=== PATIENT | female | born 2000 | race American Indian/Alaskan Native ===

== ENCOUNTER 2021-07-17 10:56 | Emergency (ER) | payer SELFPAY ==
[2021-07-17] MEDS ORDERED: ACETAMINOPHEN 325 MG TAB PO ONE (11:54)
[2021-07-17] MEDS ORDERED: ONDANSETRON 4 MG ODT TAB PO ONE (11:54)
[2021-07-17] MEDS ORDERED: HYDROcodone/ACETAMINOPHEN 5-325 MG TAB PO ONE (11:54)
[2021-07-17 12:23] LABS: HCG Qualitative,Urine Negative (Negative)
[2021-07-17 12:28] LABS: Bilirubin,Urine NEG (Negative); Blood,Urine NEG (Negative); Color,Urine Yellow (Yellow); Mucus,Urine FEW /HPF; Urobilinogen,Urine < 2.0 mg/dL (<2.0)
--- NOTE | 2021-07-17 12:58 | XRay Report ---
XR spine lumbosacral 2-3V INDICATION / CLINICAL INFORMATION: low back pain after fall. COMPARISON: None available. FINDINGS: BONES/JOINT(S): No acute fracture or subluxation. No significant degenerative changes. SOFT TISSUES: No significant abnormality. ADDITIONAL FINDINGS: None. Signer Name: Franklyn Danielle MD Signed: 07/17/2021 12:53 PM Workstation Name: [id number]
--- NOTE | 2021-07-17 14:17 | Emergency Department Report ---
ED Back Pain/Injury HPI - General Chief Complaint: Back Pain/Injury Stated Complaint: FALL Time Seen by Provider: 07/17/21 11:48 Source: patient Limitations: No Limitations - History of Present Illness Initial Comments: Patient is a 21-year-old female who presents emergency room with complaints of a fall that occurred 2 days ago. Patient states that she was walking down this c oncrete steps and it was wet and she slipped and fell. She states she hit her lower back against the step. She states since then she has had lower back pain. She denies any other injury, loss of consciousness, vision changes, numbness, weakness, bowel or bladder continence. She is ambulatory. Patient states also for the last couple days she has had nausea vomiting, chills, body aches, cough. She states that she does not feel like she has been running a fever but she has a low-grade temperature in the ER. PMHx RA. No allergies to medications. - Related Data Previous Rx's Medication Instructions Recorded Last Taken Type Naproxen 375 mg PO BID PRN #20 tablet 07/17/21 Unknown Rx Ondansetron [Zofran Odt] 4 mg PO Q8HR PRN #12 tab.rapdis 07/17/21 Unknown Rx methOCARBAMOL [Robaxin TAB] 500 mg PO BID PRN #20 tab 07/17/21 Unknown Rx Allergies Allergy/AdvReac Type Severity Reaction Status Date / Time No Known Allergies Allergy Verified 07/17/21 11:33 ED Review of Systems ROS: Stated complaint: FALL Other details as noted in HPI Comment: All other systems reviewed and negative ED Past Medical Hx - Past Medical History Hx Asthma: Yes Additional medical history: RA - Medications Home Medications: Home Medications Medication Instructions Recorded Confirmed Last Taken Type Naproxen 375 mg PO BID PRN #20 tablet 07/17/21 Unknown Rx Ondansetron [Zofran Odt] 4 mg PO Q8HR PRN #12 tab.rapdis 07/17/21 Unknown Rx methOCARBAMOL [Robaxin TAB] 500 mg PO BID PRN #20 tab 07/17/21 Unknown Rx ED Physical Exam - General Limitations: No Limitations General appearance: alert, in no apparent distress - Head Head exam: Present: atraumatic, normocephalic - Eye Eye exam: Present: normal appearance - ENT ENT exam: Present: mucous membranes moist - Neck Neck exam: Present: normal inspection, full ROM. Absent: tenderness, meningismus - Respiratory Respiratory exam: Present: normal lung sounds bilaterally. Absent: respiratory distress, wheezes, rales, rhonchi, stridor, chest wall tenderness, accessory muscle use, decreased breath sounds, prolonged expiratory - Cardiovascular Cardiovascular Exam: Present: regular rate, normal rhythm, normal heart sounds. Absent: systolic murmur, diastolic murmur, rubs, gallop - Back Exam Back exam: Present: normal inspection, full ROM, paraspinal tenderness (bilateral lumbar), vertebral tenderness (mild midline lumbar, no step offs, no deformities ) - Neurological Exam Neurological exam: Present: alert, oriented X3, CN II-XII intact, normal gait. Absent: motor sensory deficit - Psychiatric Psychiatric exam: Present: normal affect, normal mood - Skin Skin exam: Present: warm, dry, intact ED Course Vital Signs 07/17/21 07/17/21 07/17/21 11:29 13:21 15:25 Temperature 100.4 F H Pulse Rate 100 H 82 Respiratory 16 18 15 Rate Blood Pressure 144/99 Blood Pressure 126/84 [Right] O2 Sat by Pulse 100 98 Oximetry ED Medical Decision Making - Lab Data Result diagrams: 07/17/21 13:44 07/17/21 13:44 Lab Results 07/17/21 07/17/21 07/17/21 Range/Units 13:44 13:44 Unknown WBC 3.4 L (4.5-11.0) K/mm3 RBC 4.97 (3.65-5.03) M/mm3 Hgb 13.6 (10.1-14.3) gm/dl Hct 41.3 (30.3-42.9) % MCV 83 (79-97) fl MCH 27 L (28-32) pg MCHC 33 (30-34) % RDW 14.0 (13.2-15.2) % Plt Count 182 (140-440) K/mm3 [place] % (Auto) Secondary History Teacher Add Manual Diff Complete Total Counted 100 Seg Neuts % (Manual) 63.0 (40.0-70.0) % Lymphocytes % (Manual) 14.0 (13.4-35.0) % Monocytes % (Manual) 22.0 H (0.0-7.3) % Basophils % (Manual) 1.0 (0.0-1.8) % Nucleated RBC % Not Reportable Seg Neutrophils # Man 2.1 (1.8-7.7) K/mm3 Band Neutrophils # 0.0 K/mm3 Lymphocytes # (Manual) 0.5 L (1.2-5.4) K/mm3 Abs React Lymphs (Man) 0.0 K/mm3 Monocytes # (Manual) 0.7 (0.0-0.8) K/mm3 Eosinophils # (Manual) 0.0 (0.0-0.4) K/mm3 Basophils # (Manual) 0.0 (0.0-0.1) K/mm3 Metamyelocytes # 0.0 K/mm3 Myelocytes # 0.0 K/mm3 Promyelocytes # 0.0 K/mm3 Blast Cells # 0.0 K/mm3 WBC Morphology Not Reportable Hypersegmented Neuts Not Reportable Hyposegmented Neuts Not Reportable Hypogranular Neuts Not Reportable Smudge Cells Not Reportable Toxic Granulation Not Reportable Toxic Vacuolation Not Reportable Dohle Bodies Not Reportable Pelger-Huet Anomaly Not Reportable Blayne Rods Not Reportable Platelet Estimate Consistent w auto Clumped Platelets Not Reportable Plt Clumps, EDTA Not Reportable Large Platelets Few Giant Platelets Not Reportable Platelet Satelliting Not Reportable Plt Morphology Comment Not Reportable RBC Morphology Normal Dimorphic RBCs Not Reportable Polychromasia Not Reportable Hypochromasia Not Reportable Poikilocytosis Not Reportable Anisocytosis Not Reportable Microcytosis Not Reportable Macrocytosis Not Reportable Spherocytes Not Reportable Pappenheimer Bodies Not Reportable Sickle Cells Not Reportable Target Cells Not Reportable Tear Drop Cells Not Reportable Ovalocytes Not Reportable Helmet Cells Not Reportable [place] Bodies Not Reportable [place] Rings Not Reportable [place] Cells Not Reportable Bite Cells Not Reportable Crenated Cell Not Reportable Elliptocytes Not Reportable Acanthocytes (Spur) Not Reportable Rouleaux Not Reportable Hemoglobin C Crystals Not Reportable Schistocytes Not Reportable Malaria parasites Not Reportable Roberto Bodies Not Reportable Hem Pathologist Commnt No Sodium 138 (137-145) mmol/L Potassium 3.9 (3.6-5.0) mmol/L Chloride 100.7 (98-107) mmol/L Carbon Dioxide 22 (22-30) mmol/L Anion Gap 19 mmol/L BUN 5 L (7-17) mg/dL Creatinine 0.7 (0.6-1.2) mg/dL Estimated GFR > 60 ml/min BUN/Creatinine Ratio 7 % Glucose 91 (65-100) mg/dL Calcium 9.0 (8.4-10.2) mg/dL Total Bilirubin 0.40 (0.1-1.2) mg/dL AST 14 (5-40) units/L ALT 8 (7-56) units/L Alkaline Phosphatase 77 (35-129) units/L Total Protein 7.1 (6.3-8.2) g/dL Albumin 4.3 (3.9-5) g/dL Albumin/Globulin Ratio 1.5 % Urine Color Yellow (Yellow) Urine Turbidity Slightly-cloudy (Clear) Urine pH 5.0 (5.0-7.0) Ur Specific [place] 1.012 (1.003-1.030) Urine Protein 100 mg/dl (Negative) mg/dL Urine Glucose (UA) 50 (Negative) mg/dL Urine Ketones 20 (Negative) mg/dL Urine Blood Neg (Negative) Urine Nitrite Neg (Negative) Urine Bilirubin Neg (Negative) Urine Urobilinogen < 2.0 (<2.0) mg/dL Ur Leukocyte Esterase Neg (Negative) Urine WBC (Auto) 8.0 H (0.0-6.0) /HPF Urine RBC (Auto) 1.0 (0.0-6.0) /HPF U Epithel Cells (Auto) 6.0 (0-13.0) /HPF Urine Mucus Few /HPF Urine HCG, Qual (Negative) 07/17/21 Range/Units Unknown WBC (4.5-11.0) K/mm3 RBC (3.65-5.03) M/mm3 Hgb (10.1-14.3) gm/dl Hct (30.3-42.9) % MCV (79-97) fl MCH (28-32) pg MCHC (30-34) % RDW (13.2-15.2) % Plt Count (140-440) K/mm3 [place] % (Auto) Add Manual Diff Total Counted Seg Neuts % (Manual) (40.0-70.0) % Lymphocytes % (Manual) (13.4-35.0) % Monocytes % (Manual) (0.0-7.3) % Basophils % (Manual) (0.0-1.8) % Nucleated RBC % Seg Neutrophils # Man (1.8-7.7) K/mm3 Band Neutrophils # K/mm3 Lymphocytes # (Manual) (1.2-5.4) K/mm3 Abs React Lymphs (Man) K/mm3 Monocytes # (Manual) (0.0-0.8) K/mm3 Eosinophils # (Manual) (0.0-0.4) K/mm3 Basophils # (Manual) (0.0-0.1) K/mm3 Metamyelocytes # K/mm3 Myelocytes # K/mm3 Promyelocytes # K/mm3 Blast Cells # K/mm3 WBC Morphology Hypersegmented Neuts Hyposegmented Neuts Hypogranular Neuts Smudge Cells Toxic Granulation Toxic Vacuolation Dohle Bodies Pelger-Huet Anomaly Blayne Rods Platelet Estimate Clumped Platelets Plt Clumps, EDTA Large Platelets Giant Platelets Platelet Satelliting Plt Morphology Comment RBC Morphology Dimorphic RBCs Polychromasia Hypochromasia Poikilocytosis Anisocytosis Microcytosis Macrocytosis Spherocytes Pappenheimer Bodies Sickle Cells Target Cells Tear Drop Cells Ovalocytes Helmet Cells [place] Bodies [place] Rings [place] Cells Bite Cells Crenated Cell Elliptocytes Acanthocytes (Spur) Rouleaux Hemoglobin C Crystals Schistocytes Malaria parasites Roberto Bodies Hem Pathologist Commnt Sodium (137-145) mmol/L Potassium (3.6-5.0) mmol/L Chloride (98-107) mmol/L Carbon Dioxide (22-30) mmol/L Anion Gap mmol/L BUN (7-17) mg/dL Creatinine (0.6-1.2) mg/dL Estimated GFR ml/min BUN/Creatinine Ratio % Glucose (65-100) mg/dL Calcium (8.4-10.2) mg/dL Total Bilirubin (0.1-1.2) mg/dL AST (5-40) units/L ALT (7-56) units/L Alkaline Phosphatase (35-129) units/L Total Protein (6.3-8.2) g/dL Albumin (3.9-5) g/dL Albumin/Globulin Ratio % Urine Color (Yellow) Urine Turbidity (Clear) Urine pH (5.0-7.0) Ur Specific [place] (1.003-1.030) Urine Protein (Negative) mg/dL Urine Glucose (UA) (Negative) mg/dL Urine Ketones (Negative) mg/dL Urine Blood (Negative) Urine Nitrite (Negative) Urine Bilirubin (Negative) Urine Urobilinogen (<2.0) mg/dL Ur Leukocyte Esterase (Negative) Urine WBC (Auto) (0.0-6.0) /HPF Urine RBC (Auto) (0.0-6.0) /HPF U Epithel Cells (Auto) (0-13.0) /HPF Urine Mucus /HPF Urine HCG, Qual Negative (Negative) Vital Signs 07/17/21 07/17/21 07/17/21 11:29 13:21 15:25 Temperature 100.4 F H Pulse Rate 100 H 82 Respiratory 16 18 15 Rate Blood Pressure 144/99 Blood Pressure 126/84 [Right] O2 Sat by Pulse 100 98 Oximetry - Radiology Data Radiology results: report reviewed Ordering Physician: CRISSY OROSCO Date of Service: 07/17/21 Procedure(s): XR spine lumbosacral 2-3V Accession Number(s): [id number] cc: CRISSY OROSCO Fluoro Time In Minutes: XR spine lumbosacral 2-3V INDICATION / CLINICAL INFORMATION: low back pain after fall. COMPARISON: None available. FINDINGS: BONES/JOINT(S): No acute fracture or subluxation. No significant degenerative changes. SOFT TISSUES: No significant abnormality. ADDITIONAL FINDINGS: None. Signer Name: Franklyn Danielle MD Signed: 07/17/2021 12:53 PM Workstation Name: [id number] Transcribed By: EZEKIEL Dictated By: Franklyn Danielle MD Electronically Authenticated By: Franklyn Danielle MD Signed Date/Time: 07/17/21 125 DD/ 52 TD/TT: - Medical Decision Making Patient is a 21-year-old female who presents emergency room with complaints of a fall that occurred 2 days ago. Patient states that she was walking down this concrete steps and it was wet and she slipped and fell. She states she hit her lower back against the step. She states since then she has had lower back pain. She denies any other injury, loss of consciousness, vision changes, numbness, weakness, bowel or bladder continence. She is ambulatory. Patient states also for the last couple days she has had nausea vomiting, chills, body aches, cough. She states that she does not feel like she has been running a fever but she has a low-grade temperature in the ER. PMHx RA. No allergies to medications. Initial vitals with low-grade fever and mild tachycardia which improved upon repeat. X-ray lumbar spine BONES/JOINT(S): No acute fracture or subluxation. No significant degenerative changes. SOFT TISSUES: No significant abnormality. ADDITIONAL FINDINGS: None. Urine is negative. UA without evidence of significant UTI but there are some signs of dehydration. Labs ordered and are stable. Discussed the importance of oral hydration. Patient symptoms resolved after medication administration in the emergency department. Patient given prescription for medications. Advised patient please take medication as prescribed. Increase your fluid intake. May alternate ice pack and heating pad. May take Epson salt bath. Follow-up with your primary care doctor. Return to emergency room for any new or worsening symptoms. Recommend outpatient COVID-19 testing and if positive will need to self quarantine for 10 days or onset symptoms. Critical care attestation.: If time is entered above; I have spent that time in minutes in the direct care of this critically ill patient, excluding procedure time. ED Disposition Clinical Impression: Low back pain Qualifiers: Chronicity: acute Back pain laterality: bilateral Sciatica presence: without sciatica Qualified Code(s): M54.50 - Low back pain, unspecified URI (upper respiratory infection) Qualifiers: URI type: unspecified URI Qualified Code(s): J06.9 - Acute upper respiratory infection, unspecified Disposition: 01 HOME / SELF CARE / HOMELESS Is pt being admited?: No Does the pt Need Aspirin: No Condition: Stable Instructions: Acute Back Pain, Adult, Viral Respiratory Infection Additional Instructions: please take medication as prescribed. Increase your fluid intake. May alternate ice pack and heating pad. May take Epson salt bath. Follow-up with your primary care doctor. Return to emergency room for any new or worsening symptoms. Recommend outpatient COVID-19 testing and if positive will need to self quarantine for 10 days or onset symptoms. Prescriptions: Naproxen 375 mg PO BID PRN #20 tablet PRN Reason: pain methOCARBAMOL [Robaxin TAB] 500 mg PO BID PRN #20 tab PRN Reason: muscle spasm/pain Ondansetron [Zofran Odt] 4 mg PO Q8HR PRN #12 tab.rapdis PRN Reason: nausea/vomiting Referrals: PRIMARY CAREMD [Primary Care Provider] - 3-5 Days DERECK ARNOLD MD [Staff Physician] - 3-5 Days [facility] [Provider Group] - 3-5 Days Forms: Work/School Release Form(ED) Time of Disposition: 15:04 Print Language: PARAGUAYAN
[2021-07-17 14:33] LABS: Hematocrit 41.3 % (30.3-42.9); Hemoglobin 13.6 gm/dl (10.1-14.3); Mean Corpuscular HGB Conc 33 % (30-34); Mean Corpuscular Volume 83 fl (79-97); Platelet Count 182 K/mm3 (140-440); Red Blood Count 4.97 M/mm3 (3.65-5.03)
[2021-07-17 14:50] LABS: Alanine Aminotransferase 8 units/L (7-56); Albumin 4.3 g/dL (3.9-5); BUN/Creatinine Ratio 7; Blood Urea Nitrogen 5 mg/dL (7-17); Hemolysis Index 7
[2021-07-17 15:14] LABS: Large Platelets Few; RBC Morphology Normal; Total Cells Counted 100
[2021-07-17 15:15] LABS: Platelet Estimate Consistent w Auto
[2021-07-17 15:26] VITALS: BP 126/84
== END 2021-07-17 15:27 | disposition home or self-care (01) ==
LOC: ED 10:56
DX: J06.9 Acute upper respiratory infection, unspecified (principal); M54.50 Low back pain, unspecified
CPT/HCPCS: 36415; 72100; 80053; 81001; 81025; 85007; 85025; 99284; J3490; Q0162

== ENCOUNTER 2021-12-09 21:54 | Emergency (ER) | payer MEDICAID ==
[2021-12-09] MEDS ORDERED: LIDOCAINE-MPF (1%) 10 MG/1 ML VIAL 5 ML INFILTRATI ONE (22:18)
[2021-12-09] MEDS ORDERED: TETANUS,DIPH,PERTUSS(ACELL) VACCINE 0.5 ML SYRINGE IM ONE (22:20)
[2021-12-10] MEDS ORDERED: HYDROcodone/ACETAMINOPHEN 5-325 MG TAB PO STA (00:02)
--- NOTE | 2021-12-10 00:07 | Emergency Department Report ---
ED Laceration HPI <DIANE JIM - Last Filed: 12/10/21 00:03> <ANYA CARTER - Last Filed: 12/12/21 20:11> - HPI Chief Complaint: Wound/Laceration Stated Complaint: CUT WRIST ED Review of Systems ROS: Stated complaint: CUT WRIST Other details as noted in HPI Comment: All other systems reviewed and negative <DIANE JIM - Last Filed: 12/10/21 00:03> ROS: Stated complaint: CUT WRIST Other details as noted in HPI <ANYA CARTER - Last Filed: 12/12/21 20:11> ED Past Medical Hx - Past Medical History Previous Medical History?: Yes Hx Psychiatric Treatment: Yes (DEPRESSION) Hx Asthma: Yes Additional medical history: RA - Surgical History Past Surgical History?: No - Social History Smoking Status: Never Smoker Substance Use Type: None <DIANE JIM - Last Filed: 12/10/21 00:03> <ANYA CARTER - Last Filed: 12/12/21 20:11> - Medications Home Medications: Home Medications Medication Instructions Recorded Confirmed Last Taken Type Naproxen 375 mg PO BID PRN #20 tablet 07/17/21 Unknown Rx Ondansetron [Zofran Odt] 4 mg PO Q8HR PRN #12 tab.rapdis 07/17/21 Unknown Rx methOCARBAMOL [Robaxin TAB] 500 mg PO BID PRN #20 tab 07/17/21 Unknown Rx Acetaminophen/Codeine [Tylenol 1 tab PO Q6H PRN #10 tab 12/10/21 Unknown Rx /Codeine # 3 tab] cephALEXin [Keflex] 500 mg PO Q8HR #21 cap 12/10/21 Unknown Rx Laceration Physical Exam - Exam General: Vital signs noted. No distress. Alert and acting appropriately. Wound Length (cm): 3 Laceration Location: Upper Extremity Full Body Front + Back: 1 - Jagged irregular laceration to this area of the wrist anteriorly located in orc fashion. Adjacent to the laceration there is a more superficial linear laceration there is 3 cm in length as well Laceration Exam: Yes Normal Distal CMS, No Foreign Body, No Exposed Tendon, Vessel, or Nerve, No Tendon Injury <DIANE JIM - Last Filed: 12/10/21 00:03> - Exam General: Vital signs noted. No distress. Alert and acting appropriately. <ANYA CARTER U - Last Filed: 12/12/21 20:11> ED Course Vital Signs 12/09/21 21:59 Temperature 98.2 F Pulse Rate 94 H Respiratory 16 Rate Blood Pressure 132/94 O2 Sat by Pulse 100 Oximetry <DIANE JIM - Last Filed: 12/10/21 00:03> Vital Signs 12/09/21 12/10/21 12/10/21 21:59 00:39 00:40 Temperature 98.2 F 98.9 F 98.9 F Pulse Rate 94 H 80 80 Respiratory 16 15 15 Rate Blood Pressure 132/94 130/72 Blood Pressure 130/72 [Left] O2 Sat by Pulse 100 100 100 Oximetry <CICICHELSIEANYA U - Last Filed: 12/12/21 20:11> - Laceration /Wound Repair Right Wrist Wound Location: upper extremity Wound Length (cm): 3 Wound's Depth, Shape: irregular Betadine Prep?: Yes Anesthesia: 1% Lidocaine Volume Anesthetic (ccs): 4 Wound Debrided: minimal Wound Repaired With: sutures Suture Size/Type: 4:0 Number of Sutures: 5 (Vicryl) Layer Closure?: Yes Sterile Dressing Applied?: Yes Right Arm Wound Length (cm): 3 Wound's Depth, Shape: linear Wound Explored: clean Irrigated w/ Saline (ccs): 5 Wound Debrided: minimal Wound Repaired With: Dermabond <DIANE JIM - Last Filed: 12/10/21 00:03> ED Medical Decision Making - Medical Decision Making I have reviewed the PA/ARMAMENT INSTALLER's note and plan of care. I was available for consultation as needed at all times during the patient's visit in the emergency department but was not consulted on this case. <ANYA CARTER U - Last Filed: 12/12/21 20:11> Critical care attestation.: If time is entered above; I have spent that time in minutes in the direct care of this critically ill patient, excluding procedure time. <DIANE JIM - Last Filed: 12/10/21 00:03> Critical care attestation.: If time is entered above; I have spent that time in minutes in the direct care of this critically ill patient, excluding procedure time. <ANYA CARTER - Last Filed: 12/12/21 20:11> ED Disposition Is pt being admited?: No Does the pt Need Aspirin: No <DIANE JIM - Last Filed: 12/10/21 00:03> <ANYA CARTER - Last Filed: 12/12/21 20:11> Clinical Impression: Laceration of wrist Disposition: 01 HOME / SELF CARE / HOMELESS Condition: Stable Instructions: Laceration Care, Adult, Sutures, Marly, or Adhesive Wound Closure, [id number] Additional Instructions: Removal sutures are placed in your wrist you do not need to return for suture removal. Also the Dermabond will remove itself natural progressive fashion please do not pick The close lesion. Keep wound clean with antibacterial soap and water keep wound dry. Prescriptions: cephALEXin [Keflex] 500 mg PO Q8HR #21 cap Acetaminophen/Codeine [Tylenol /Codeine # 3 tab] 1 tab PO Q6H PRN #10 tab PRN Reason: wrist pain Referrals: [facility] [Other] - 3-5 Days Forms: Work/School Release Form(ED)
[2021-12-10 00:40] VITALS: BP 130/72
== END 2021-12-10 00:42 | disposition home or self-care (01) ==
LOC: ED 21:54
DX: S61.511A Laceration without foreign body of right wrist, initial encounter (principal); S51.811A Laceration without foreign body of right forearm, initial encounter; W45.8XXA Other foreign body or object entering through skin, initial encounter; Y93.89 Activity, other specified; Y92.89 Other specified places as the place of occurrence of the external cause; Y99.8 Other external cause status
CPT/HCPCS: 12001; 12042; 90471; 90715; 99282; J3490